=== PATIENT | female | born 1960 | race American Indian/Alaskan Native ===

== ENCOUNTER → 2025-01-26 | Outpatient (CLI) | payer OTHER, SELFPAY ==
--- NOTE | 2025-01-26 10:27 | XR_ITS ---
Examination: Right knee 4 views TECHNIQUE: AP oblique lateral axial right knee 4 views Date and time: January 26, 2025 1044 hours INDICATIONS: Right knee pain 2 months FINDINGS: Moderate narrowing medial joint space Prominent osteopenia Moderate osteoarthritis patellofemoral joint and mild to moderate osteoarthritis lateral joint space Small knee effusion IMPRESSION: Mild to moderate tricompartment osteoarthritis No fracture
== END | disposition home or self-care (01) ==
PROVIDERS: PCP Physician Assistant; Referring Provider Physician Assistant; Visit Provider Physician Assistant
DX: M17.11 Unilateral primary osteoarthritis, right knee (principal)
CPT/HCPCS: 73564